=== PATIENT | male | born 1975 | race Caucasian/White ===

== ENCOUNTER → 2020-07-19 15:22 | Outpatient (CLI) | payer OTHER, SELFPAY ==
--- NOTE | ~2020-07-19 | XR_ITS ---
XR lumbar spine 2-3V 07/19/2020 15:55 Indication: Lumbago Procedure: 3 views lumbar spine Comparison: 11/20/2016 Findings: There is grade 2 spondylolisthesis at L5-S1 secondary to spondylolysis. There is disc narro wing at all lumbar levels. No acute fracture is identified. Vertebral body heights are maintained. Pe dicles intact. Sacral foramen are symmetric. Impression: 1: Moderate lumbar spondylosis with grade 2 spondylolisthesis at L5-S1. Reviewed, dictated and finalized at location B. Impression: 1: Moderate lumbar spondylosis with grade 2 spondylolisthesis at L5-S1.
== END ==
PROVIDERS: PCP Nurse Practitioner Family; Visit Provider Nurse Practitioner Family
DX: G89.29 Other chronic pain (principal); M54.41 Lumbago with sciatica, right side; M47.816 Spondylosis without myelopathy or radiculopathy, lumbar region; M43.17 Spondylolisthesis, lumbosacral region
CPT/HCPCS: 72100

== ENCOUNTER → 2020-08-18 07:44 | Outpatient (CLI) | payer OTHER, SELFPAY ==
--- NOTE | ~2020-08-18 | MR_ITS ---
EXAMINATION: MR lumbar spine wo con DATE: 08/18/2020 08:20 INDICATION: Lumbago with right-sided sciatica. TECHNIQUE: Magnetic resonance imaging (MRI) of the lumbar spine was performed without intravenous con trast. Sequences included sagittal T2-weighted FSE, sagittal T2-weighted FS FSE, sagittal T1-weighted FSE, and axial T2-weighted FSE. COMPARISON: Lumbar spine MRI 11/25/2016, left rib radiographs 03/31/2011, lumbar spine radiographs 07/19 FINDINGS: There are small ribs at T12. L5 is a transitional segment. There are chronic bilateral L4 p ars defects. There is 9 mm anterolisthesis of L4 on L5. There is mild chronic anterior wedging of T11 and T12 vertebral bodies, likely physiologic. There is moderate decreased disc height at L4-L5. The distal spinal cord signal intensity is normal. The conus medullaris is at T12-L1. The following disc levels are specifically discussed: L1-L2: The disc does not extend beyond the endplate margin. There is no facet joint osteoarthritis. T here is no neural foraminal stenosis. There is no central canal stenosis. L2-L3: The disc does not extend beyond the endplate margin. There is mild left facet joint osteoarthr itis. There is no neural foraminal stenosis. There is no central canal stenosis. L3-L4: The disc does not extend beyond the endplate margin. There is mild bilateral facet joint osteo arthritis. There is no neural foraminal stenosis. There is no central canal stenosis. L4-L5: The disc is bulging and has an annular fissure. There is mild bilateral facet joint osteoarthr itis. There is mild bilateral neural foraminal stenosis. There is mild central canal stenosis. L5-S1: The disc does not extend beyond the endplate margin. There is no facet joint osteoarthritis. T here is no neural foraminal stenosis. There is no central canal stenosis. IMPRESSION: 1. Chronic bilateral L4 pars defects with worsened grade 2 anterolisthesis of L4 on L5. 2. Worsened moderate degenerative disc disease at L4-L5. Reviewed, dictated and finalized at location A. IMPRESSION: 1. Chronic bilateral L4 pars defects with worsened grade 2 anterolisthesis of L 4 on L5. 2. Worsened moderate degenerative disc disease at L4-L5.
== END ==
PROVIDERS: PCP Nurse Practitioner Family; Visit Provider Nurse Practitioner Family
DX: G89.29 Other chronic pain (principal); M54.41 Lumbago with sciatica, right side; M43.16 Spondylolisthesis, lumbar region; M51.36 Other intervertebral disc degeneration, lumbar region
CPT/HCPCS: 72148

== ENCOUNTER → 2021-01-01 08:51 | Outpatient (CLI) | payer OTHER, SELFPAY ==
--- NOTE | ~2021-01-01 | XR_ITS ---
EXAMINATION: XR lumbar spine 2-3V DATE: 01/01/2021 09:20 INDICATION: Low back pain TECHNIQUE: Anteroposterior and lateral views of the lumbar spine, and cone-down lateral view of the l umbosacral junction were obtained. COMPARISON: 07/20/2019 FINDINGS: There are changes of interval anterior and posterior fusion at L4-5. There are 6 mm of ante rolisthesis of L4 on L5, improved since the comparison examination. Bone alignment is otherwise neeraj l. The vertebral body heights are maintained. The intervertebral disc spaces from L1-2 through L4-5 a re normal. IMPRESSION: 1. Interval changes of anterior posterior fusion at L4-5 with slightly improved alignment at L4-5. No acute findings. Reviewed, dictated and finalized at location A.
== END ==
PROVIDERS: PCP Family Medicine; Visit Provider Neurological Surgery
DX: Z48.89 Encounter for other specified surgical aftercare (principal); Z98.1 Arthrodesis status
CPT/HCPCS: 72100

== ENCOUNTER → 2021-02-12 15:22 | Outpatient (CLI) | payer OTHER, SELFPAY ==
--- NOTE | ~2021-02-12 | XR_ITS ---
XR lumbar spine 2-3V 02/12/2021 15:46 Indication: Low back pain. Arthrodesis. Procedure: 3 views of the lumbar spine Comparison: 01/01/2021 and 07/19/2020 Findings: Status post posterior spinal fusion at L5-S1 with grade 1 spondylolisthesis at this level. There is a prosthetic disc device at L5-S1. Hardware appears to be intact. No significant change to a lignment compared with 01/01/2021 allowing for technique. Vertebral body heights are maintained. Impression: 1: Stable alignment of the lumbar spine compared with 01/01/2021. Reviewed, dictated and finalized at location A. Impression: 1: Stable alignment of the lumbar spine compared with 01/01/2021.
== END ==
PROVIDERS: Visit Provider Neurological Surgery
DX: M54.50 Low back pain, unspecified (principal); Z98.1 Arthrodesis status
CPT/HCPCS: 72100

== ENCOUNTER → 2021-03-26 16:06 | Outpatient (CLI) | payer OTHER, SELFPAY ==
--- NOTE | ~2021-03-26 | XR_ITS ---
EXAMINATION: XR lumbar spine 2-3V EXAM DATE: 03/26/2021 16:31 INDICATION: Arthrodesis status, Low back pain, unspecified . TECHNIQUE: Lumber spine frontal, lateral, lateral L5-S1 projections for interpretation. Comparison is made to prior examination from 02/12/2021. FINDINGS: Suspect chronic bilateral L5 spondylolysis with grade 1 anterolisthesis, fixed with L5-S1 posterior and interbody fusion, position and appearance unchanged compared to prior study. L5 laminec tomies. Mild thoracolumbar disc disease at the other levels. Mild lumbar facet arthropathy. Sacrum, s acroiliac joints, sacral arcuate lines are intact. IMPRESSION: Stable L5-S1 fusion. Reviewed, dictated and finalized at location A. E MERCHANDISER IMPRESSION: Stable L5-S1 fusion.
== END ==
PROVIDERS: PCP Nurse Practitioner Family; Visit Provider Neurological Surgery
DX: M54.50 Low back pain, unspecified (principal); Z98.1 Arthrodesis status; M96.1 Postlaminectomy syndrome, not elsewhere classified
CPT/HCPCS: 72100